=== PATIENT | female | born 1945 | race Caucasian/White ===

== ENCOUNTER 2018-02-16 17:09 | Emergency (ER) | payer MEDICARE, OTHER ==
[~2018-02-16 17:09] MED LIST changes: -CIPR-344 PO; -HYDR-385 PO; -METR-1 PO
--- NOTE | 2018-02-16 17:42 | ER Report ---
History and Physical Time Seen By MD: 17:32 Hx. of Stated Complaint: Pt. brought in by EMS with vomitting and dizziness. Pt. had a hamburger from [employer] and started vomiting soon after. Per pt. she has been having epigastric pain 7/10 after eating every meal. Recent unintentional 18pound weight loss in the past month. HPI/ROS CHIEF COMPLAINT: Abdominal pain HISTORY OF PRESENT ILLNESS: 73-year-old female patient presents to emergency room with complaint of abdominal pain and diarrhea. Patient states that she's victor d intermittent abdominal pain for the past several days. She states that today she seemed to have worsening abdominal pain. She states she was driving her daughter to work and to to the bank. She states that during that time she was having significant pain. She did purchase a burger and chicken nights. She states that she ate a burger and immediately after eating that felt like she is going to have to go the bathroom. [facility], however she is not able to control herself and had a continent bowel movement which was diarrhea. She states that she had recurrent are close as well as made a mass in the paulino and in the bathroom. Patient states she was unable to go home and did call EMS who brought her to the emergency room. She states she felt very lightheaded, and nauseous. It was her lightheadedness that concerned her the most. REVIEW OF SYSTEMS: Respiratory: No cough, no dyspnea. Cardiovascular: No chest pain, no palpitations. Gastrointestinal: As noted above Musculoskeletal: No back pain. Allergies: Coded Allergies: Penicillins (Verified Allergy, Severe, SWELLING, 08/09/14) prochlorperazine (Verified Allergy, Intermediate, PARANOIA, 08/09/14) Sulfa (Sulfonamide Antibiotics) (Verified Allergy, Mild, 08/09/14) promethazine (Verified Adverse Reaction, Intermediate, PARANOIA, 08/09/14) Home Meds Active Scripts Hydrocodone Bit/Acetaminophen (HYDROCODON-ACETAMINOPHEN 5-325) 1 Each Tablet, 1 EACH PO Q4-6H PRN for PAIN, #8 TAB Prov:PARVIN HIGGINS 02/16/18 Metronidazole (FLAGYL) 500 Mg Tablet, 500 MG PO BID, #12 TAB Prov:PARVIN HIGGINS 10/16/18 Ciprofloxacin Hcl (CIPRO) 500 Mg Tablet, 500 MG PO BID, #12 TAB Prov:PARVIN HIGGINS [employer] OPERATOR 02/16/18 Reported Medications Calcium Carbonate (CALCIUM) 600 Mg Tablet, 600 MG PO QDAY 08/09/14 Tramadol Hcl (TRAMADOL HCL) 50 Mg Tablet, 50 MG PO Q8H PRN for PAIN 08/09/14 Potassium Gluconate (POTASSIUM GLUCONATE) 500 Mg Tablet, 595 MG PO QDAY 08/09/14 Cyanocobalamin (Vitamin B-12) (VITAMIN B-12) 1,000 Mcg Tablet, 1000 MCG PO QDAY 08/09/14 Bonham-3 Fatty Acids/Fish Oil (OMEGA 3 1,000 MG SOFTGEL) 1 Each Capsule, 2 EACH PO BID, CAPSULE 08/09/14 Cholecalciferol (Vitamin D3) (VITAMIN D3) 2,000 Unit Capsule, 2000 UNIT PO QDAY, CAPSULE 08/09/14 Garlic (GARLIC) 1,000 Mg Capsule, 1000 MG PO QDAY, CAPSULE 08/09/14 Multivitamin (MULTIPLE VITAMINS) 1 Each Tablet, 1 EACH PO QDAY 08/09/14 Sitagliptin Phosphate (JANUVIA) 50 Mg Tablet, 50 MG PO QDAY 08/09/14 Ascorbic Acid (VITAMIN C) 1,000 Mg Tablet, 1000 MG PO QDAY 08/09/14 Diclofenac Sodium 1% Gel (VOLTAREN 1% GEL) 100 Gm Gel..gram., 1 G TOP QDAY 08/09/14 Lansoprazole (LANSOPRAZOLE) 30 Mg Capsule.dr, 30 MG PO QDAY 07/16/14 Past Medical/Surgical History Patient has a past medical history of asthma, pneumonia, reflux, cholecystitis, arthritis, fractures, back pain, diabetes, alcohol abuse. Patient has a surgical history of back surgery, hysterectomy, bladder sling, bowel resection, cholecystectomy. Patient has a family medical history of CAD, diabetes. Reviewed Nurses Notes: Yes Hx Smoking: No Smoking Status: Never Smoker Exposure to Second Hand Smoke?: No Hx Substance Use Disorder: No Hx Alcohol Use: Yes Constitutional Vital Sign - Last 24 Hours 02/16/18 02/16/18 02/16/18 02/16/18 17:15 17:18 17:30 17:45 Temp 98.2 Pulse 111 108 105 Resp 20 B/P (MAP) 123/64 130/75 (93) Pulse Ox 89 92 93 O2 Delivery Nasal Cannula 02/16/18 02/16/18 02/16/18 02/16/18 18:00 18:45 18:50 19:00 Pulse 102 105 B/P (MAP) 128/79 (95) 123/70 (87) Pulse Ox 95 93 02/16/18 02/16/18 02/16/18 02/16/18 19:20 19:30 19:50 20:00 Pulse 102 96 B/P (MAP) 127/79 (95) 130/67 (88) Pulse Ox 93 92 Physical Exam General Appearance: The patient is alert, has no immediate need for airway protection and no current signs of toxicity. Respiratory: Chest is non tender, lungs are clear to auscultation. Cardiac: regular rate and rhythm Gastrointestinal: Abdomen is soft and tender in the epigastric region, no masses, bowel sounds normal. Musculoskeletal: Neck: Neck is supple and non tender. Extremities have full range of motion and are non tender. Skin: No rashes or lesions. DIFFERENTIAL DIAGNOSIS: After history and physical exam differential diagnosis was considered for abdominal pain including but not limited to appendicitis, cholecystitis, gastritis and urinary tract infection. Medical Decision Making Data Points Result Diagram: 02/16/18 1725 02/16/18 1725 Laboratory Hematology Test 02/16/18 17:25 02/16/18 20:09 Red Blood Count 5.50 M/uL (4.17-5.56) Mean Corpuscular Volume 89.4 fL (80.0-96.0) Mean Corpuscular Hemoglobin 30.3 pg (26.0-33.0) Mean Corpuscular Hemoglobin Concent 33.9 g/dL (32.0-36.0) Red Cell Distribution Width 13.7 % (11.5-14.5) Mean Platelet Volume 9.6 fL (7.2-11.1) Neutrophils (%) (Auto) 64.6 % (39.4-72.5) Lymphocytes (%) (Auto) 24.5 % (17.6-49.6) Monocytes (%) (Auto) 9.1 % (4.1-12.4) Eosinophils (%) (Auto) 1.3 % (0.4-6.7) Basophils (%) (Auto) 0.5 % (0.3-1.4) Nucleated RBC Relative Count (auto) 0.1 /100WBC Neutrophils # (Auto) 5.3 K/uL (2.0-7.4) Lymphocytes # (Auto) 2.0 K/uL (1.3-3.6) Monocytes # (Auto) 0.7 K/uL (0.3-1.0) Eosinophils # (Auto) 0.1 K/uL (0.0-0.5) Basophils # (Auto) 0.0 K/uL (0.0-0.1) Nucleated RBC Absolute Count (auto) 0.01 K/uL Sodium Level 139 mmol/L (137-145) Potassium Level 3.7 mmol/L (3.5-5.0) Chloride Level 102 mmol/L (98-107) Carbon Dioxide Level 22 mmol/L (22-31) Blood Urea Nitrogen 19 mg/dl (7-18) Creatinine 1.20 mg/dl (0.52-1.04) Glomerular Filtration Rate Calc 43.8 Random Glucose 255 mg/dl (75-110) Calcium Level 9.4 mg/dl (8.4-10.2) Total Bilirubin 1.2 mg/dl (0.2-1.3) Aspartate Amino Transf (AST/SGOT) 44 U/L (0-35) Alanine Aminotransferase (ALT/SGPT) 46 U/L (0-56) Alkaline Phosphatase 78 U/L (0-126) C-Reactive Protein 1.0 mg/dl (<1.0) Total Protein 7.5 g/dl (6.3-8.2) Albumin 4.4 g/dl (3.5-5.0) Amylase Level 108 U/L (0-110) Lipase 61 U/L (23-300) Urine Color Yellow Urine Clarity Clear Urine pH 5.0 pH (4.8-9.5) Urine Specific [place] S3 Urine Protein Negative mg/dL (NEGATIVE) Urine Glucose (UA) 50 mg/dL (NEGATIVE) Urine Ketones Trace mg/dL (NEGATIVE) Urine Blood Negative (NEGATIVE) Urine Nitrite Negative (NEGATIVE) Urine Bilirubin Negative (NEGATIVE) Urine Urobilinogen Negative mg/dL (0.2-1.9) Urine Leukocyte Esterase Negative (NEGATIVE) Urine RBC 2 /HPF (0-2/HPF) Urine WBC 2 /HPF (0-5/HPF) Urine Squamous Epithelial Cells Many /LPF (</=FEW) Urine Bacteria Negative /HPF (NONE-FEW) Urine Hyaline Casts Few /LPF (NONE-FEW) Urine Mucus Few /HPF (NONE-FEW) Chemistry Test 02/16/18 17:25 02/16/18 20:09 White Blood Count 8.1 k/uL (4.5-11.0) Red Blood Count 5.50 M/uL (4.17-5.56) Hemoglobin 16.7 g/dL (12.0-16.0) Hematocrit 49.2 % (34.0-47.0) Mean Corpuscular Volume 89.4 fL (80.0-96.0) Mean Corpuscular Hemoglobin 30.3 pg (26.0-33.0) Mean Corpuscular Hemoglobin Concent 33.9 g/dL (32.0-36.0) Red Cell Distribution Width 13.7 % (11.5-14.5) Platelet Count 191 K/uL (150-450) Mean Platelet Volume 9.6 fL (7.2-11.1) Neutrophils (%) (Auto) 64.6 % (39.4-72.5) Lymphocytes (%) (Auto) 24.5 % (17.6-49.6) Monocytes (%) (Auto) 9.1 % (4.1-12.4) Eosinophils (%) (Auto) 1.3 % (0.4-6.7) Basophils (%) (Auto) 0.5 % (0.3-1.4) Nucleated RBC Relative Count (auto) 0.1 /100WBC Neutrophils # (Auto) 5.3 K/uL (2.0-7.4) Lymphocytes # (Auto) 2.0 K/uL (1.3-3.6) Monocytes # (Auto) 0.7 K/uL (0.3-1.0) Eosinophils # (Auto) 0.1 K/uL (0.0-0.5) Basophils # (Auto) 0.0 K/uL (0.0-0.1) Nucleated RBC Absolute Count (auto) 0.01 K/uL Glomerular Filtration Rate Calc 43.8 Calcium Level 9.4 mg/dl (8.4-10.2) Total Bilirubin 1.2 mg/dl (0.2-1.3) Aspartate Amino Transf (AST/SGOT) 44 U/L (0-35) Alanine Aminotransferase (ALT/SGPT) 46 U/L (0-56) Alkaline Phosphatase 78 U/L (0-126) C-Reactive Protein 1.0 mg/dl (<1.0) Total Protein 7.5 g/dl (6.3-8.2) Albumin 4.4 g/dl (3.5-5.0) Amylase Level 108 U/L (0-110) Lipase 61 U/L (23-300) Urine Color Yellow Urine Clarity Clear Urine pH 5.0 pH (4.8-9.5) Urine Specific [place] S3 Urine Protein Negative mg/dL (NEGATIVE) Urine Glucose (UA) 50 mg/dL (NEGATIVE) Urine Ketones Trace mg/dL (NEGATIVE) Urine Blood Negative (NEGATIVE) Urine Nitrite Negative (NEGATIVE) Urine Bilirubin Negative (NEGATIVE) Urine Urobilinogen Negative mg/dL (0.2-1.9) Urine Leukocyte Esterase Negative (NEGATIVE) Urine RBC 2 /HPF (0-2/HPF) Urine WBC 2 /HPF (0-5/HPF) Urine Squamous Epithelial Cells Many /LPF (</=FEW) Urine Bacteria Negative /HPF (NONE-FEW) Urine Hyaline Casts Few /LPF (NONE-FEW) Urine Mucus Few /HPF (NONE-FEW) Urinalysis Test 02/16/18 20:09 Urine Color Yellow Urine Clarity Clear Urine pH 5.0 pH (4.8-9.5) Urine Specific [place] S3 Urine Protein Negative mg/dL (NEGATIVE) Urine Glucose (UA) 50 mg/dL (NEGATIVE) Urine Ketones Trace mg/dL (NEGATIVE) Urine Blood Negative (NEGATIVE) Urine Nitrite Negative (NEGATIVE) Urine Bilirubin Negative (NEGATIVE) Urine Urobilinogen Negative mg/dL (0.2-1.9) Urine Leukocyte Esterase Negative (NEGATIVE) Urine RBC 2 /HPF (0-2/HPF) Urine WBC 2 /HPF (0-5/HPF) Urine Squamous Epithelial Cells Many /LPF (</=FEW) Urine Bacteria Negative /HPF (NONE-FEW) Urine Hyaline Casts Few /LPF (NONE-FEW) Urine Mucus Few /HPF (NONE-FEW) EKG/Imaging Imaging ABDOMEN/PELVIS WITH CONTRAST HISTORY: Abdominal pain and weight loss for one month. Diarrhea. TECHNIQUE: CT abdomen and pelvis with intravenous contrast. One of the following dose optimization techniques was utilized in the performance of this exam: Automated exposure control; adjustment of the mA and/or kV according to the patient's size; or use of an iterative reconstruction technique. Specific details can be referenced in the facility's radiology CT exam operational policy. CONTRAST: 75 mL Isovue-370. COMPARISON: CT dated 07/02/2011. FINDINGS: Visualized lung bases: Calcified granuloma within the right lower lobe. Otherwise negative. Hepatobiliary: Suggestion of hepatic steatosis. Gallbladder surgically absent. Otherwise negative. Spleen: Borderline prominent in size measuring 12.4 cm in diameter. There are numerous peripherally calcified splenic artery aneurysms, most of which are sub centimeter. A dominant bilobed aneurysm is noted within the proximal/mid splenic artery measuring approximately 2.7 x 1.9 cm (image 28 of series 2), previously 2.5 x 1.9 cm when measured in same fashion. Adrenals: Negative. Pancreas: Negative. Kidneys/: There is at least one 2 mm nonobstructive calculus within the left kidney. Uterus is surgically absent. Otherwise negative. GI: Areas of mild/moderate colonic wall thickening. No definitive pericolonic inflammation. No focal mass. No evidence for obstruction. Post surgical changes noted within small bowel loops in the lower midabdomen. Appendix is grossly unremarkable. Mild sigmoid diverticulosis without evidence for diverticulitis. Vessels/spaces/nodes: Mild atherosclerosis. No visualized lymphadenopathy. Mild/moderate sigmoid diverticulosis without evidence for diverticulitis. There are nonspecific small caliber collateral vessels within the retroperitoneum and left lower quadrant, increased since prior exam. The splenic vein is patent. No central venous narrowing identified. Bones/soft tissues: No acute osseous abnormality. Posterior surgical wiley from T10 through L2 without gross hardware complication. Probable remote fracture of the L1 vertebral body, unchanged. There is a new however subacute/chronic appea ring L4 superior endplate compression deformity. Moderate size intramuscular lipoma within the anterior compartment of the right upper thigh. IMPRESSION: 1. Areas of colonic wall thickening which could be somewhat related to underdistention however cannot exclude a component of infectious/inflammatory colitis. 2. Otherwise, no findings to explain the patient's clinical symptoms. 3. Incidental/chronic findings, as above. Report Dictated By: Kehinde Oneill MD at 02/16/2018 6:43 PM Report E-Signed By: Kehinde Oneill MD at 02/16/2018 6:51 PM ED Course/Re-evaluation ED Course Patient was admitted to an exam room, history and physical were obtained. Differential diagnoses were considered. On examination patient did have tenderness in the epigastric region. Her lungs and heart were clear and regular. A CBC, CMP were done. Patient did have an elevated blood sugar, however the rest of her labs were unremarkable. A CT scan of the abdomen and pelvis was done which showed mild thickening of the large intestine which would be consistent with an infectious colitis. I discussed the results of the lab work as well as imaging with the patient. Patient states she's having significant pain and requested something for pain. We did give her a dose of fentanyl. She states that she had significant improvement in her pain. She states she would like to go home. At the time that I was discussing with that with her she states dates that she would like to go ahead and go home and not wait for her urinalysis which were just obtained. I informed her that I would call her with results. We did get her started on Cipro, Flagyl. We'll also give her a limited supply of pain medication, hydrocodone with Tylenol, 5/325, #6. Patient received a take home pack of Lortab here in the emergency room. Patient requested that we discharge her home. I did call the patient when the urinalysis was available. I informed her that was negative for any signs of infection, although there were 50 mg of sugar in it. I believe is likely secondary to her hyperglycemia. We will have the patient follow-up with her primary care provider. She is to return to the emergency room if condition worsens. Patient verbalized understanding and agreement with plan. Decision to Disposition Date: Feb 16, 2018 Decision to Disposition Time: 19:40 Depart Departure Latest Vital Signs Vital Signs Date Time Temp Pulse Resp B/P (MAP) Pulse Ox O2 Delivery O2 Flow Rate FiO2 02/16/18 20:00 130/67 (88) 02/16/18 19:50 96 92 02/16/18 17:18 98.2 20 Nasal Cannula Impression: Primary Impression: Infectious colitis Condition: Improved Disposition: HOME OR SELF-CARE Referrals: MELIZA WILSON (PCP) New Scripts Hydrocodone Bit/Acetaminophen (HYDROCODON-ACETAMINOPHEN 5-325) 1 Each Tablet 1 EACH PO Q4-6H PRN for PAIN, #8 TAB Prov: PARVIN HIGGINS 02/16/18 Metronidazole (FLAGYL) 500 Mg Tablet 500 MG PO BID, #12 TAB Prov: PARVIN HIGGINS 02/16/18 Ciprofloxacin Hcl (CIPRO) 500 Mg Tablet 500 MG PO BID, #12 TAB Prov: PARVIN HIGGINS 02/16/18 Patient Instructions: Infectious Colitis (ED) Additional Instructions: Limit activity by pain. Increase fluid intake. Follow up with your primary care provider in the next 3-5 days. Get plenty of rest. You may continue with normal activity and diet. Return to the ER if condition worsens. PARVIN HIGGINS Feb 16, 2018 17:42
[2018-02-16] MEDS ORDERED: NS(*) 0.9% 500 ML BAG 500 ML IV ONE (17:47)
[2018-02-16 17:55] LABS: PLATELET COUNT, AUTOMATED 191 K/uL (150-450)
[2018-02-16] MEDS ORDERED: IOPAMIDOL 76% 75 ML INFUS BTL 75 ML ONE (18:00)
--- NOTE | 2018-02-16 18:54 | RADIOLOGY IMAGING REPORT ---
FACILITY: [facility] PATIENT NAME: Natalie Meza : 1945 MR: [id number] V: [id number] EXAM DATE: ORDERING PHYSICIAN: PARVIN HIGGINS TECHNOLOGIST: Location: [facility] [place] Patient: Natalie Meza : 1945 Visit/Account:[id number] Date of Sevice: 02/16/2018 ABDOMEN/PELVIS WITH CONTRAST HISTORY: Abdominal pain and weight loss for one month. Diarrhea. TECHNIQUE: CT abdomen and pelvis with intravenous contrast. One of the following dose optimization techniques was utilized in the performance of this exam: Autom ated exposure control; adjustment of the mA and/or kV according to the patient's size; or use of an i terative reconstruction technique. Specific details can be referenced in the facility's radiology C T exam operational policy. CONTRAST: 75 mL Isovue-370. COMPARISON: CT dated 07/02/2011. FINDINGS: Visualized lung bases: Calcified granuloma within the right lower lobe. Otherwise negative. Hepatobiliary: Suggestion of hepatic steatosis. Gallbladder surgically absent. Otherwise negative. Spleen: Borderline prominent in size measuring 12.4 cm in diameter. There are numerous peripherally calcified splenic artery aneurysms, most of which are subcentimeter. A dominant bilobed aneurysm is n oted within the proximal/mid splenic artery measuring approximately 2.7 x 1.9 cm (image 28 of series 2), previously 2.5 x 1.9 cm when measured in same fashion. Adrenals: Negative. Pancreas: Negative. Kidneys/: There is at least one 2 mm nonobstructive calculus within the left kidney. Uterus is surg ically absent. Otherwise negative. GI: Areas of mild/moderate colonic wall thickening. No definitive pericolonic inflammation. No focal mass. No evidence for obstruction. Post surgical changes noted within small bowel loops in the lower midabdomen. Appendix is grossly unremarkable. Mild sigmoid diverticulosis without evidence for diver ticulitis. Vessels/spaces/nodes: Mild atherosclerosis. No visualized lymphadenopathy. Mild/moderate sigmoid div erticulosis without evidence for diverticulitis. There are nonspecific small caliber collateral vess els within the retroperitoneum and left lower quadrant, increased since prior exam. The splenic vein is patent. No central venous narrowing identified. Bones/soft tissues: No acute osseous abnormality. Posterior surgical wiley from T10 through L2 without gross hardware complication. Probable remote fracture of the L1 vertebral body, unchanged. There is a new however subacute/chronic appearing L4 superior endplate compression deformity. Moderate size in tramuscular lipoma within the anterior compartment of the right upper thigh. IMPRESSION: 1. Areas of colonic wall thickening which could be somewhat related to underdistention however cannot exclude a component of infectious/inflammatory colitis. 2. Otherwise, no findings to explain the patient's clinical symptoms. 3. Incidental/chronic findings, as above. Report Dictated By: Kehinde Oneill MD at 02/16/2018 6:43 PM Report E-Signed By: Kehinde Oneill MD at 02/16/2018 6:51 PM WSN:[id number]
[2018-02-16] MEDS ORDERED: fentaNYL CITR 100 MCG/2 ML AMP IVP ONE (19:25)
[2018-02-16] MEDS ORDERED: HYDR-385 PO (19:40)
[2018-02-16] MEDS ORDERED: ACET/HYDROC 5/325MG TH ER ONLY 2 TAB/BOTTLE PO ONE (19:40)
[2018-02-16] MEDS ORDERED: CIPR-344 PO (19:40)
[2018-02-16] MEDS ORDERED: METR-1 PO (19:40)
[2018-02-16] MEDS ORDERED: CIPROFLOXACIN 500 MG TAB PO ONE (19:40)
[2018-02-16] MEDS ORDERED: METRONIDAZOLE 500 MG TABLET PO ONE (19:40)
[2018-02-16 20:00] VITALS: BP 130/67
== END 2018-02-16 20:32 | disposition home or self-care (01) ==
LOC: ER 17:43
DX: A09 Infectious gastroenteritis and colitis, unspecified (principal)
CPT/HCPCS: 81001; 82150; 83690; 85025; 86140; 96361; 96374; 99284; A9270; J3010; J7040; Q9967; 74177; 82040; 82247; 82310; 82374; 82435; 82565; 82947; 84075; 84132; 84155; 84295; 84450; 84460; 84520

== ENCOUNTER → 2018-02-16 | Outpatient (CLI) | payer MEDICARE, OTHER ==
[~2018-02-16] MED LIST: ACET650T40 PO; ASCO-191 PO; CALC600T63 PO; CEP500 PO; CHOL200025 PO; CIPR-344 PO; CYA1000 PO; CYCL10TA29 PO; DICL100G39 TOP; GARL10005 PO; GLIP-152 PO; HYDR-385 PO; HYDR-653 PO; HYDR473S4 PO; IBUP-56 PO; LANS30CA63 PO; LOR5 PO; METR-1 PO; MULT-976 PO; NO ROUTINE MEDS; OMEG-96 PO; OND4 PO; PAN40 PO; POTA2TAB29 PO; PSYP PO; SITA50TA6 PO; SUC1 PO; TRAM-420 PO
== END ==
LOC: AMB 16:38
PROVIDERS: ATTEND Nurse Practitioner
DX: R42 Dizziness and giddiness (principal); R15.9 Full incontinence of feces; E11.9 Type 2 diabetes mellitus without complications
CPT/HCPCS: A0425; A0427

== ENCOUNTER 2018-03-26 08:12 | Emergency (ER) | payer MEDICARE, OTHER ==
[~2018-03-26 08:12] MED LIST changes: +CIPR-344 PO; +HYDR-385 PO; +METR-1 PO
--- NOTE | 2018-03-26 08:14 | ER Report ---
History and Physical Time Seen By MD: 08:14 HPI/ROS CHIEF COMPLAINT: Left flank pain, nausea HISTORY OF PRESENT ILLNESS: Patient is a 73-year-old female who presents to the emergency department with complaint of nausea with multiple episodes of vomiting along with sudden onset of severe left flank pain that radiates to the groin. Patient has no prior history of kidney stones. She did report over this past week she was suffering from some bouts of watery diarrhea without blood or mucus. Patient denies any chest pain or shortness of breath. REVIEW OF SYSTEMS: Constitutional: No fever, no chills. Eyes: No discharge. ENT: No sore throat. Cardiovascular: No chest pain, no palpitations. Respiratory: No cough, no shortness of breath. Gastrointestinal: Left-sided flank pain, nausea with vomiting Genitourinary: No hematuria. Musculoskeletal: No back pain. Skin: No rashes. Neurological: No headache. Allergies: Coded Allergies: Penicillins (Verified Allergy, Severe, SWELLING, 03/26/18) prochlorperazine (Verified Allergy, Intermediate, PARANOIA, 03/26/18) Sulfa (Sulfonamide Antibiotics) (Verified Allergy, Mild, 03/26/18) promethazine (Verified Adverse Reaction, Intermediate, PARANOIA, 03/26/18) Home Meds Active Scripts Ondansetron Hcl (ZOFRAN) 4 Mg Tablet, 4 MG PO Q8H for Nausea, #15 TAB 0 Refills Prov:OTILIO MAGANA MD 03/26/18 Hydrocodone Bit/Acetaminophen (HYDROCODON-ACETAMINOPHEN 5-325) 1 Each Tablet, 1 EACH PO Q4-6H PRN for PAIN, #20 TAB 0 Refills TAKE ONE TABLET BY MOUTH EVERY 4-6 HOURS NEEDED FOR PAIN Prov:OTILIO MAGANA MD 03/26/18 Reported Medications Omeprazole (OMEPRAZOLE) 20 Mg Capsule.dr, 1 CAP PO QDAY, CAP 03/26/18 Sitagliptin Phosphate (JANUVIA) 100 Mg Tablet, 100 MG PO QDAY 03/26/18 Cholecalciferol (Vitamin D3) (VITAMIN D3) 2,000 Unit Capsule, 2000 UNIT PO QDAY, CAPSULE 08/09/14 Discontinued Reported Medications Calcium Carbonate (CALCIUM) 600 Mg Tablet, 600 MG PO QDAY 08/09/14 Tramadol Hcl (TRAMADOL HCL) 50 Mg Tablet, 50 MG PO Q8H PRN for PAIN 08/09/14 Potassium Gluconate (POTASSIUM GLUCONATE) 500 Mg Tablet, 595 MG PO QDAY 08/09/14 Cyanocobalamin (Vitamin B-12) (VITAMIN B-12) 1,000 Mcg Tablet, 1000 MCG PO QDAY 08/09/14 [place]-3 Fatty Acids/Fish Oil (OMEGA 3 1,000 MG SOFTGEL) 1 Each Capsule, 2 EACH PO BID, CAPSULE 08/09/14 Garlic (GARLIC) 1,000 Mg Capsule, 1000 MG PO QDAY, CAPSULE 08/09/14 Multivitamin (MULTIPLE VITAMINS) 1 Each Tablet, 1 EACH PO QDAY 08/09/14 Sitagliptin Phosphate (JANUVIA) 50 Mg Tablet, 50 MG PO QDAY 08/09/14 Ascorbic Acid (VITAMIN C) 1,000 Mg Tablet, 1000 MG PO QDAY 08/09/14 Diclofenac Sodium 1% Gel (VOLTAREN 1% GEL) 100 Gm Gel..gram., 1 G TOP QDAY 08/09/14 Lansoprazole (LANSOPRAZOLE) 30 Mg Capsule.dr, 30 MG PO QDAY 07/16/14 Discontinued Scripts Hydrocodone Bit/Acetaminophen (HYDROCODON-ACETAMINOPHEN 5-325) 1 Each Tablet, 1 EACH PO Q4-6H PRN for PAIN, #8 TAB Prov:[facility] 02/16/18 Metronidazole (FLAGYL) 500 Mg Tablet, 500 MG PO BID, #12 TAB Prov:[facility]IN [facility] 02/16/18 Ciprofloxacin Hcl 500 Mg Tab (CIPRO 500 MG TAB) 500 Mg Tablet, 500 MG PO BID, #12 TAB Prov:[facility] 02/16/18 Past Medical/Surgical History History of type II diabetes, history of gastroesophageal reflux disease Hx Smoking: No Smoking Status: Never Smoker Exposure to Second Hand Smoke?: No Hx Substance Use Disorder: No Hx Alcohol Use: Yes Constitutional Vital Sign - Last 24 Hours 03/26/18 03/26/18 03/26/18 03/26/18 08:30 08:31 09:12 09:42 Temp 98.6 Pulse 86 83 72 Resp 14 B/P (MAP) 133/71 (91) 133/71 Pulse Ox 92 96 91 O2 Delivery Room Air 03/26/18 03/26/18 03/26/18 03/26/18 09:47 09:55 09:58 10:00 Pulse 77 B/P (MAP) 107/56 (73) 122/63 (82) Pulse Ox 89 O2 Flow Rate 2.0 03/26/18 03/26/18 10:17 10:30 Pulse 82 B/P (MAP) 135/57 (83) Pulse Ox 94 Physical Exam General Appearance: The patient is alert, has no immediate need for airway protection and no signs of toxicity. Eyes: Pupils equal and round no pallor or injection. ENT, Mouth: Mucous membranes are moist. Respiratory: There are no retractions, lungs are clear to auscultation. Cardiovascular: Regular rate and rhythm. Gastrointestinal: Abdomen is soft and non tender, no masses, bowel sounds normal. Neurological: Awake and alert Skin: Warm and dry, no rashes. Musculoskeletal: Neck is supple non tender. Extremities are nontender, nonswollen and have full range of motion. Medical Decision Making Data Points Result Diagram: 03/26/18 0906 03/26/18 0906 Laboratory Hematology Test 03/26/18 08:20 03/26/18 09:06 Urine Color Yellow Urine Clarity Slightly-cloudy Urine pH 5.0 pH (4.8-9.5) Urine Specific [place] 1.021 Urine Protein 30 mg/dL (NEGATIVE) Urine Glucose (UA) 500 mg/dL (NEGATIVE) Urine Ketones Negative mg/dL (NEGATIVE) Urine Blood Large (NEGATIVE) Urine Nitrite Negative (NEGATIVE) Urine Bilirubin Negative (NEGATIVE) Urine Urobilinogen Negative mg/dL (0.2-1.9) Urine Leukocyte Esterase Negative (NEGATIVE) Urine RBC 13 /HPF (0-2/HPF) Urine WBC 2 /HPF (0-5/HPF) Urine Squamous Epithelial Cells Many /LPF (</=FEW) Urine Bacteria Few /HPF (NONE-FEW) Urine Mucus Few /HPF (NONE-FEW) Red Blood Count 5.42 M/uL (4.17-5.56) Mean Corpuscular Volume 89.9 fL (80.0-96.0) Mean Corpuscular Hemoglobin 30.3 pg (26.0-33.0) Mean Corpuscular Hemoglobin Concent 33.7 g/dL (32.0-36.0) Red Cell Distribution Width 13.7 % (11.5-14.5) Mean Platelet Volume 9.1 fL (7.2-11.1) Neutrophils (%) (Auto) 58.0 % (39.4-72.5) Lymphocytes (%) (Auto) 30.4 % (17.6-49.6) Monocytes (%) (Auto) 9.1 % (4.1-12.4) Eosinophils (%) (Auto) 1.0 % (0.4-6.7) Basophils (%) (Auto) 1.5 % (0.3-1.4) Nucleated RBC Relative Count (auto) 0.0 /100WBC Neutrophils # (Auto) 4.1 K/uL (2.0-7.4) Lymphocytes # (Auto) 2.1 K/uL (1.3-3.6) Monocytes # (Auto) 0.6 K/uL (0.3-1.0) Eosinophils # (Auto) 0.1 K/uL (0.0-0.5) Basophils # (Auto) 0.1 K/uL (0.0-0.1) Nucleated RBC Absolute Count (auto) 0.00 K/uL Sodium Level 139 mmol/L (137-145) Potassium Level 4.5 mmol/L (3.5-5.0) Chloride Level 106 mmol/L (98-107) Carbon Dioxide Level 21 mmol/L (22-31) Blood Urea Nitrogen 13 mg/dl (7-18) Creatinine 0.70 mg/dl (0.52-1.04) Glomerular Filtration Rate Calc > 60.0 Random Glucose 301 mg/dl (75-110) Calcium Level 9.7 mg/dl (8.4-10.2) Total Bilirubin 0.8 mg/dl (0.2-1.3) Aspartate Amino Transf (AST/SGOT) 37 U/L (0-35) Alanine Aminotransferase (ALT/SGPT) 41 U/L (0-56) Alkaline Phosphatase 78 U/L (0-126) Total Protein 7.2 g/dl (6.3-8.2) Albumin 3.9 g/dl (3.5-5.0) Lipase 118 U/L (23-300) Chemistry Test 03/26/18 08:20 03/26/18 09:06 Urine Color Yellow Urine Clarity Slightly-cloudy Urine pH 5.0 pH (4.8-9.5) Urine Specific [place] 1.021 Urine Protein 30 mg/dL (NEGATIVE) Urine Glucose (UA) 500 mg/dL (NEGATIVE) Urine Ketones Negative mg/dL (NEGATIVE) Urine Blood Large (NEGATIVE) Urine Nitrite Negative (NEGATIVE) Urine Bilirubin Negative (NEGATIVE) Urine Urobilinogen Negative mg/dL (0.2-1.9) Urine Leukocyte Esterase Negative (NEGATIVE) Urine RBC 13 /HPF (0-2/HPF) Urine WBC 2 /HPF (0-5/HPF) Urine Squamous Epithelial Cells Many /LPF (</=FEW) Urine Bacteria Few /HPF (NONE-FEW) Urine Mucus Few /HPF (NONE-FEW) White Blood Count 7.0 k/uL (4.5-11.0) Red Blood Count 5.42 M/uL (4.17-5.56) Hemoglobin 16.4 g/dL (12.0-16.0) Hematocrit 48.8 % (34.0-47.0) Mean Corpuscular Volume 89.9 fL (80.0-96.0) Mean Corpuscular Hemoglobin 30.3 pg (26.0-33.0) Mean Corpuscular Hemoglobin Concent 33.7 g/dL (32.0-36.0) Red Cell Distribution Width 13.7 % (11.5-14.5) Platelet Count 145 K/uL (150-450) Mean Platelet Volume 9.1 fL (7.2-11.1) Neutrophils (%) (Auto) 58.0 % (39.4-72.5) Lymphocytes (%) (Auto) 30.4 % (17.6-49.6) Monocytes (%) (Auto) 9.1 % (4.1-12.4) Eosinophils (%) (Auto) 1.0 % (0.4-6.7) Basophils (%) (Auto) 1.5 % (0.3-1.4) Nucleated RBC Relative Count (auto) 0.0 /100WBC Neutrophils # (Auto) 4.1 K/uL (2.0-7.4) Lymphocytes # (Auto) 2.1 K/uL (1.3-3.6) Monocytes # (Auto) 0.6 K/uL (0.3-1.0) Eosinophils # (Auto) 0.1 K/uL (0.0-0.5) Basophils # (Auto) 0.1 K/uL (0.0-0.1) Nucleated RBC Absolute Count (auto) 0.00 K/uL Glomerular Filtration Rate Calc > 60.0 Calcium Level 9.7 mg/dl (8.4-10.2) Total Bilirubin 0.8 mg/dl (0.2-1.3) Aspartate Amino Transf (AST/SGOT) 37 U/L (0-35) Alanine Aminotransferase (ALT/SGPT) 41 U/L (0-56) Alkaline Phosphatase 78 U/L (0-126) Total Protein 7.2 g/dl (6.3-8.2) Albumin 3.9 g/dl (3.5-5.0) Lipase 118 U/L (23-300) Urinalysis Test 03/26/18 08:20 Urine Color Yellow Urine Clarity Slightly-cloudy Urine pH 5.0 pH (4.8-9.5) Urine Specific [place] 1.021 Urine Protein 30 mg/dL (NEGATIVE) Urine Glucose (UA) 500 mg/dL (NEGATIVE) Urine Ketones Negative mg/dL (NEGATIVE) Urine Blood Large (NEGATIVE) Urine Nitrite Negative (NEGATIVE) Urine Bilirubin Negative (NEGATIVE) Urine Urobilinogen Negative mg/dL (0.2-1.9) Urine Leukocyte Esterase Negative (NEGATIVE) Urine RBC 13 /HPF (0-2/HPF) Urine WBC 2 /HPF (0-5/HPF) Urine Squamous Epithelial Cells Many /LPF (</=FEW) Urine Bacteria Few /HPF (NONE-FEW) Urine Mucus Few /HPF (NONE-FEW) EKG/Imaging Imaging FACILITY: [facility] [place] PATIENT NAME: Natalie Meza : 1945 MR: [id number] V: [id number] EXAM DATE: [id number] ORDERING PHYSICIAN: OTILIO MAGANA TECHNOLOGIST: [place] [facility] [place] Meza : 1945 Visit/Account:[id number] Date of Sevice: 03/26/2018 ABDOMEN/PELVIS W/O CONTRAST HISTORY: Left flank pain. TECHNIQUE: CT abdomen and pelvis without intravenous contrast. One of the following dose optimization techniques was utilized in the performance of this exam: Automated exposure control; adjustment of the mA and/or kV according to the patient's size; or use of an iterative reconstruction technique. Specific details can be referenced in the facility's radiology CT exam operational policy. CONTRAST: None. Please note, lack of IV contrast limits evaluation of solid organs. COMPARISON: CT dated February 16, 2018. FINDINGS: Visualized lung bases: Calcite granuloma within the right lower lobe. Otherwise negative. Hepatobiliary: Questionable mild lobulated contour of the liver. Gallbladder surgically absent. Otherwise negative. Spleen: Negative. Adrenals: Negative. Pancreas: Negative. Kidneys/: 3-4 mm calculus at or just proximal to the left UVJ with mild left hydroureteronephrosis. No additional urolithiasis identified. Few scattered nonspecific cortical calcifications within the kidneys. Uterus is surgically absent. GI: Mild/moderate sigmoid diverticulosis without evidence for diverticulitis. There is mild circumferential wall thickening of the sigmoid colon which is likely related to chronic inflammation. Appendix is unremarkable. Postsurgical changes noted within a small bowel loop in the lower abdomen. Vessels/spaces/nodes: Mild atherosclerosis. Peripherally calcified splenic artery aneurysms, unchanged. Otherwise negative. Bones/soft tissues: Incidental note of an intramuscular lipoma within the anterior right thigh compartment. Grossly unremarkable appearance of lumbar fusion hardware. Chronic L4 superior plate compression deformity, unchanged. No acute abnormality. IMPRESSION: 1. 3-4 mm calculus at or just proximal to the left UVJ with mild left hydroureteronephrosis. 2. Additional incidental/chronic findings, as above. Report Dictated By: Kehinde Oneill MD at 03/26/2018 9:52 AM Report E-Signed By: Kehinde Oneill MD at 03/26/2018 9:59 AM WSN:[id number] ED Course/Re-evaluation Clinical Indication for ER IV: IV Access ED Course 03/26/2018 8:56:16 amAfter history and physical exam was performed differential diagnosis was formulated which includes but is not limited to renal colic, urinary tract infection, gastroenteritis. Bedside ultrasound showed moderate left-sided hydronephrosis. Plan at this time will be pain medication, nausea medicine we'll also perform CT scan of the abdomen and pelvis. Re-evaluation 03/26/2018 10:20:27 am patient feeling improved at this time. Patient with 3-4 mm UPJ stone on the left. Plan will be oral pain medicine with nausea medicine and discharge home. Decision to Disposition Date: Mar 26, 2018 Decision to Disposition Time: 10:27 Depart Departure Latest Vital Signs Vital Signs Date Time Temp Pulse Resp B/P (MAP) Pulse Ox O2 Delivery O2 Flow Rate FiO2 03/26/18 10:30 135/57 (83) 03/26/18 10:17 82 94 03/26/18 09:55 2.0 03/26/18 08:31 98.6 14 Room Air Impression: Primary Impression: Kidney stone on left side Condition: Improved Disposition: HOME OR SELF-CARE Referrals: MELIZA WILSON (PCP) New Scripts Ondansetron Hcl (ZOFRAN) 4 Mg Tablet 4 MG PO Q8H for Nausea, #15 TAB 0 Refills Prov: OTILIO MAGANA MD 03/26/18 Hydrocodone Bit/Acetaminophen (HYDROCODON-ACETAMINOPHEN 5-325) 1 Each Tablet 1 EACH PO Q4-6H PRN for PAIN, #20 TAB 0 Refills TAKE ONE TABLET BY MOUTH EVERY 4-6 HOURS NEEDED FOR PAIN Prov: OTILIO MAGANA MD 03/26/18 Patient Instructions: Kidney Stones (ED) Additional Instructions: If your symptoms do not improve by Thursday, March 29 you should call to schedule an appointment with the urologist. If at any point your pain is not controlled, you have intractable vomiting, or you develop fever you should r eturn to the emergency department immediately for reevaluation. OTILIO MAGANA MD Mar 26, 2018 08:14
[2018-03-26] MEDS ORDERED: NS(*) 0.9% 500 ML BAG 500 ML IV ONE (08:48)
[2018-03-26] MEDS ORDERED: ONDANSETRON 4 MG/2 ML VIAL IVP ONE (08:50)
[2018-03-26] MEDS ORDERED: KETOROLAC 30 MG/ML VIAL IVP ONE (08:50)
[2018-03-26] MEDS ORDERED: OMEP-125 PO (09:12)
[2018-03-26] MEDS ORDERED: SITA100T PO (09:12)
[2018-03-26 09:16] LABS: PLATELET COUNT, AUTOMATED 145 K/uL (150-450)
--- NOTE | 2018-03-26 10:03 | RADIOLOGY IMAGING REPORT ---
FACILITY: [facility] [place] PATIENT NAME: Natalie Meza : 1945 MR: [id number] V: [id number] EXAM DATE: ORDERING PHYSICIAN: OTILIO MAGANA TECHNOLOGIST: Location: [facility] Patient: Natalie Meza : 1945 Visit/Account:[id number] Date of Sevice: 03/26/2018 ABDOMEN/PELVIS W/O CONTRAST HISTORY: Left flank pain. TECHNIQUE: CT abdomen and pelvis without intravenous contrast. One of the following dose optimization techniques was utilized in the performance of this exam: Autom ated exposure control; adjustment of the mA and/or kV according to the patient's size; or use of an i terative reconstruction technique. Specific details can be referenced in the facility's radiology C T exam operational policy. CONTRAST: None. Please note, lack of IV contrast limits evaluation of solid organs. COMPARISON: CT dated February 16, 2018. FINDINGS: Visualized lung bases: Calcite granuloma within the right lower lobe. Otherwise negative. Hepatobiliary: Questionable mild lobulated contour of the liver. Gallbladder surgically absent. Ot herwise negative. Spleen: Negative. Adrenals: Negative. Pancreas: Negative. Kidneys/: 3-4 mm calculus at or just proximal to the left UVJ with mild left hydroureteronephrosis . No additional urolithiasis identified. Few scattered nonspecific cortical calcifications within t he kidneys. Uterus is surgically absent. GI: Mild/moderate sigmoid diverticulosis without evidence for diverticulitis. There is mild circumf erential wall thickening of the sigmoid colon which is likely related to chronic inflammation. Appen dennis is unremarkable. Postsurgical changes noted within a small bowel loop in the lower abdomen. Vessels/spaces/nodes: Mild atherosclerosis. Peripherally calcified splenic artery aneurysms, unchan ged. Otherwise negative. Bones/soft tissues: Incidental note of an intramuscular lipoma within the anterior right thigh yuridia rtment. Grossly unremarkable appearance of lumbar fusion hardware. Chronic L4 superior plate compre ssion deformity, unchanged. No acute abnormality. IMPRESSION: 1. 3-4 mm calculus at or just proximal to the left UVJ with mild left hydroureteronephrosis. 2. Additional incidental/chronic findings, as above. Report Dictated By: Kehinde Oneill MD at 03/26/2018 9:52 AM Report E-Signed By: Kehinde Oneill MD at 03/26/2018 9:59 AM WSN:[id number]
[2018-03-26] MEDS ORDERED: ONDA4TAB97 PO (10:24)
[2018-03-26] MEDS ORDERED: LOR5/325 PO (10:24)
[2018-03-26 10:30] VITALS: BP 135/57
== END 2018-03-26 10:51 | disposition home or self-care (01) ==
LOC: ER 08:22
DX: N13.2 Hydronephrosis with renal and ureteral calculous obstruction (principal)
CPT/HCPCS: 36415; 74176; 81001; 83690; 85025; 87088; 96361; 96374; 96375; 99284; J1885; J2405; J7040; 82040; 82247; 82310; 82374; 82435; 82565; 82947; 84075; 84132; 84155; 84295; 84450; 84460; 84520

== ENCOUNTER 2018-03-29 00:03 | Emergency (ER) | payer MEDICARE, OTHER ==
[~2018-03-29 00:03] MED LIST changes: +LOR5/325 PO; +OMEP-125 PO; +ONDA4TAB97 PO; +SITA100T PO
--- NOTE | 2018-03-29 00:05 | ER Report ---
History and Physical Time Seen By MD: 00:06 HPI/ROS CHIEF COMPLAINT: Left flank pain HISTORY OF PRESENT ILLNESS: 73-year-old female returns complaining of continued left flank pain. She was diagnosed with a kidney stone 2 days ago on CAT scan. She now notes vomiting for several hours. Patient notes no fever. She's been taking pain medication as prescribed. She took the Zofran at home but vomited despite taking it. She is unable to keep the pain medication down. REVIEW OF SYSTEMS: Respiratory: No cough, no dyspnea. Cardiovascular: No chest pain, no palpitations. Gastrointestinal: As above Musculoskeletal: As above Allergies: Coded Allergies: Penicillins (Verified Allergy, Severe, SWELLING, 03/26/18) prochlorperazine (Verified Allergy, Intermediate, PARANOIA, 03/26/18) Sulfa (Sulfonamide Antibiotics) (Verified Allergy, Mild, 03/26/18) promethazine (Verified Adverse Reaction, Intermediate, PARANOIA, 03/26/18) Home Meds Active Scripts Tamsulosin Hcl (FLOMAX) 0.4 Mg Cap.er.24h, 0.4 MG PO QHS for ureteral relaxation, #10 CAP Prov:KARIE MILTON DO 03/29/18 Ondansetron Hcl (ZOFRAN) 4 Mg Tablet, 4 MG PO Q8H for Nausea, #15 TAB 0 Refills Prov:OTILIO MAGANA MD 03/26/18 Reported Medications Hydrocodone Bit/Acetaminophen (HYDROCODON-ACETAMINOPHEN 5-325) 1 Each Tablet, 1- 2 EACH PO Q4-6H PRN for PAIN, TAB 03/29/18 Omeprazole (OMEPRAZOLE) 20 Mg Capsule.dr, 1 CAP PO QDAY, CAP 03/26/18 Sitagliptin Phosphate (JANUVIA) 100 Mg Tablet, 100 MG PO QDAY 03/26/18 Discontinued Reported Medications Hydrocodone Bit/Acetaminophen (HYDROCODON-ACETAMINOPHEN 5-325) 1 Each Tablet, 1- 2 EACH PO Q4-6H, TAB 03/29/18 Cholecalciferol (Vitamin D3) (VITAMIN D3) 2,000 Unit Capsule, 2000 UNIT PO QDAY, CAPSULE 08/09/14 Calcium Carbonate (CALCIUM) 600 Mg Tablet, 600 MG PO QDAY 08/09/14 Tramadol Hcl (TRAMADOL HCL) 50 Mg Tablet, 50 MG PO Q8H PRN for PAIN 08/09/14 Potassium Gluconate (POTASSIUM GLUCONATE) 500 Mg Tablet, 595 MG PO QDAY 08/09/14 Cyanocobalamin (Vitamin B-12) (VITAMIN B-12) 1,000 Mcg Tablet, 1000 MCG PO QDAY 08/09/14 Archbold-3 Fatty Acids/Fish Oil (OMEGA 3 1,000 MG SOFTGEL) 1 Each Capsule, 2 EACH PO BID, CAPSULE 08/09/14 Garlic (GARLIC) 1,000 Mg Capsule, 1000 MG PO QDAY, CAPSULE 08/09/14 Multivitamin (MULTIPLE VITAMINS) 1 Each Tablet, 1 EACH PO QDAY 08/09/14 Sitagliptin Phosphate (JANUVIA) 50 Mg Tablet, 50 MG PO QDAY 08/09/14 Ascorbic Acid (VITAMIN C) 1,000 Mg Tablet, 1000 MG PO QDAY 08/09/14 Diclofenac Sodium 1% Gel (VOLTAREN 1% GEL) 100 Gm Gel..gram., 1 G TOP QDAY 08/09/14 Lansoprazole (LANSOPRAZOLE) 30 Mg Capsule.dr, 30 MG PO QDAY 07/16/14 Discontinued Scripts Hydrocodone Bit/Acetaminophen (HYDROCODON-ACETAMINOPHEN 5-325) 1 Each Tablet, 1 EACH PO Q4-6H PRN for PAIN, #20 TAB 0 Refills TAKE ONE TABLET BY MOUTH EVERY 4-6 HOURS NEEDED FOR PAIN Prov:OTILIO MAGANA MD 03/26/18 Hydrocodone Bit/Acetaminophen (HYDROCODON-ACETAMINOPHEN 5-325) 1 Each Tablet, 1 EACH PO Q4-6H PRN for PAIN, #8 TAB Prov:PARVIN HIGGINS [facility] 02/16/18 Metronidazole (FLAGYL) 500 Mg Tablet, 500 MG PO BID, #12 TAB Prov:PARVIN HIGGINS [facility] 02/16/18 Ciprofloxacin Hcl 500 Mg Tab (CIPRO 500 MG TAB) 500 Mg Tablet, 500 MG PO BID, #12 TAB Prov:PARVIN HIGGINS [facility] 02/16/18 Past Medical/Surgical History Patient has a past medical history of asthma, pneumonia, reflux, cholecystitis, arthritis, fractures, back pain, diabetes, alcohol abuse. Patient has a surgical history of back surgery, hysterectomy, bladder sling, bowel resection, cholecystectomy. Patient has a family medical history of CAD, diabetes. Reviewed Nurses Notes: Yes Old Medical Records Reviewed: Yes Hx Smoking: No Smoking Status: Never Smoker Exposure to Second Hand Smoke?: No Hx Substance Use Disorder: No Hx Alcohol Use: Yes Constitutional Vital Sign - Last 24 Hours 03/29/18 03/29/18 03/29/18 03/29/18 00:03 00:06 00:06 00:21 Temp 97.3 Pulse 101 Resp 20 B/P (MAP) 123/59 123/59 (80) Pulse Ox 80 80 O2 Delivery Room Air Room Air O2 Flow Rate 2 2.0 03/29/18 03/29/18 03/29/18 03/29/18 00:24 00:33 00:34 00:48 Pulse 89 80 B/P (MAP) 116/69 (85) Pulse Ox 92 93 O2 Delivery Nasal Cannula Nasal Cannula O2 Flow Rate 2.0 2 2 03/29/18 03/29/18 03/29/18 03/29/18 00:53 01:00 01:08 01:30 Pulse 84 85 B/P (MAP) 106/54 (71) 105/58 (74) Pulse Ox 88 87 O2 Delivery Nasal Cannula Nasal Cannula O2 Flow Rate 2 03/29/18 03/29/18 03/29/18 03/29/18 01:38 01:43 01:58 02:00 Pulse 73 75 69 B/P (MAP) 100/49 (66) Pulse Ox 93 78 93 O2 Delivery Nasal Cannula Room Air O2 Flow Rate 2 03/29/18 03/29/18 03/29/18 03/29/18 02:00 02:03 02:03 02:08 Pulse 70 Resp 14 Pulse Ox 94 O2 Delivery Nasal Cannula O2 Flow Rate 2.0 2.0 1.0 03/29/18 03/29/18 03/29/18 03/29/18 02:09 02:30 03:00 03:30 Pulse 74 B/P (MAP) 103/46 (65) 109/52 (71) 100/66 (77) Pulse Ox 97 90 90 89 O2 Delivery Nasal Cannula Nasal Cannula Nasal Cannula Nasal Cannula O2 Flow Rate 1 1 1 1 03/29/18 03/29/18 03/29/18 03/29/18 04:00 04:06 04:11 04:13 Pulse 72 72 B/P (MAP) 101/56 (71) Pulse Ox 91 93 93 O2 Delivery Nasal Cannula Nasal Cannula O2 Flow Rate 2.0 1 1 1103/29/18 03/29/18 03/29/18 04:18 04:30 04:33 04:38 Pulse 73 70 73 B/P (MAP) 110/58 (75) Pulse Ox 91 86 93 95 O2 Delivery Nasal Cannula Nasal Cannula Nasal Cannula O2 Flow Rate 2 2 Physical Exam General Appearance: The patient is alert, has no immediate need for airway protection and no current signs of toxicity. Vital signs stable, afebrile, pulse ox normal, slightly pale appearing, skin warm and dry Eyes: Pupils equal and round no injection. Respiratory: Chest is non tender, lungs are clear to auscultation. Cardiac: regular rate and rhythm Gastrointestinal: Abdomen is soft and non tender, no masses, bowel sounds normal. Musculoskeletal: Neck: Neck is supple and non tender. Extremities have full range of motion and are non tender. Skin: No rashes or lesions. DIFFERENTIAL DIAGNOSIS: After history and physical exam differential diagnosis was considered for flank pain including but not limited to musculoskeletal causes, kidney stone, pyelonephritis, shingles, and intra-abdominal causes such as diverticulitis and appendicitis. Additionally,shortness of breath including but not limited to pulmonary infectious process, COPD, asthma, pulmonary embolus and congestive heart failure. Medical Decision Making Data Points Result Diagram: 03/29/18 0030 03/29/18 0349 Laboratory Hematology Test 03/29/18 00:30 03/29/18 03:49 Red Blood Count 4.91 M/uL (4.17-5.56) Mean Corpuscular Volume 88.9 fL (80.0-96.0) Mean Corpuscular Hemoglobin 30.5 pg (26.0-33.0) Mean Corpuscular Hemoglobin Concent 34.3 g/dL (32.0-36.0) Red Cell Distribution Width 13.6 % (11.5-14.5) Mean Platelet Volume 9.5 fL (7.2-11.1) Neutrophils (%) (Auto) 68.8 % (39.4-72.5) Lymphocytes (%) (Auto) 18.1 % (17.6-49.6) Monocytes (%) (Auto) 10.6 % (4.1-12.4) Eosinophils (%) (Auto) 2.0 % (0.4-6.7) Basophils (%) (Auto) 0.5 % (0.3-1.4) Nucleated RBC Relative Count (auto) 0.6 /100WBC Neutrophils # (Auto) 7.7 K/uL (2.0-7.4) Lymphocytes # (Auto) 2.0 K/uL (1.3-3.6) Monocytes # (Auto) 1.2 K/uL (0.3-1.0) Eosinophils # (Auto) 0.2 K/uL (0.0-0.5) Basophils # (Auto) 0.1 K/uL (0.0-0.1) Nucleated RBC Absolute Count (auto) 0.07 K/uL D-Dimer Quantitative (PE/DVT) 1.15 ug/ml (0-0.50) Lactate 2.5 mmol/L (0.7-2.1) Total Bilirubin 1.0 mg/dl (0.2-1.3) Aspartate Amino Transf (AST/SGOT) 21 U/L (0-35) Alanine Aminotransferase (ALT/SGPT) 32 U/L (0-56) Alkaline Phosphatase 67 U/L (0-126) Total Protein 6.4 g/dl (6.3-8.2) Albumin 3.6 g/dl (3.5-5.0) Amylase Level 57 U/L (0-110) Lipase 280 U/L (23-300) Sodium Level 135 mmol/L (137-145) Potassium Level 4.0 mmol/L (3.5-5.0) Chloride Level 104 mmol/L (98-107) Carbon Dioxide Level 23 mmol/L (22-31) Blood Urea Nitrogen 18 mg/dl (7-18) Creatinine 1.30 mg/dl (0.52-1.04) Glomerular Filtration Rate Calc 39.9 Random Glucose 167 mg/dl (75-110) Calcium Level 7.6 mg/dl (8.4-10.2) Chemistry Test 03/29/18 00:30 03/29/18 03:49 White Blood Count 11.2 k/uL (4.5-11.0) Red Blood Count 4.91 M/uL (4.17-5.56) Hemoglobin 15.0 g/dL (12.0-16.0) Hematocrit 43.7 % (34.0-47.0) Mean Corpuscular Volume 88.9 fL (80.0-96.0) Mean Corpuscular Hemoglobin 30.5 pg (26.0-33.0) Mean Corpuscular Hemoglobin Concent 34.3 g/dL (32.0-36.0) Red Cell Distribution Width 13.6 % (11.5-14.5) Platelet Count 179 K/uL (150-450) Mean Platelet Volume 9.5 fL (7.2-11.1) Neutrophils (%) (Auto) 68.8 % (39.4-72.5) Lymphocytes (%) (Auto) 18.1 % (17.6-49.6) Monocytes (%) (Auto) 10.6 % (4.1-12.4) Eosinophils (%) (Auto) 2.0 % (0.4-6.7) Basophils (%) (Auto) 0.5 % (0.3-1.4) Nucleated RBC Relative Count (auto) 0.6 /100WBC Neutrophils # (Auto) 7.7 K/uL (2.0-7.4) Lymphocytes # (Auto) 2.0 K/uL (1.3-3.6) Monocytes # (Auto) 1.2 K/uL (0.3-1.0) Eosinophils # (Auto) 0.2 K/uL (0.0-0.5) Basophils # (Auto) 0.1 K/uL (0.0-0.1) Nucleated RBC Absolute Count (auto) 0.07 K/uL D-Dimer Quantitative (PE/DVT) 1.15 ug/ml (0-0.50) Lactate 2.5 mmol/L (0.7-2.1) Total Bilirubin 1.0 mg/dl (0.2-1.3) Aspartate Amino Transf (AST/SGOT) 21 U/L (0-35) Alanine Aminotransferase (ALT/SGPT) 32 U/L (0-56) Alkaline Phosphatase 67 U/L (0-126) Total Protein 6.4 g/dl (6.3-8.2) Albumin 3.6 g/dl (3.5-5.0) Amylase Level 57 U/L (0-110) Lipase 280 U/L (23-300) Glomerular Filtration Rate Calc 39.9 Calcium Level 7.6 mg/dl (8.4-10.2) Coagulation Test 03/29/18 00:30 D-Dimer Quantitative (PE/DVT) 1.15 ug/ml EKG/Imaging Imaging CT scan from 03/26/18 reviewed, see below ABDOMEN/PELVIS W/O CONTRAST HISTORY: Left flank pain. TECHNIQUE: CT abdomen and pelvis without intravenous contrast. One of the following dose optimization techniques was utilized in the performance of this exam: Automated exposure control; adjustment of the mA and/or kV according to the patient's size; or use of an iterative reconstruction technique. Specific details can be referenced in the facility's radiology CT exam operational policy. CONTRAST: None. Please note, lack of IV contrast limits evaluation of solid organs. COMPARISON: CT dated February 16, 2018. FINDINGS: Visualized lung bases: Calcite granuloma within the right lower lobe. Otherwise negative. Hepatobiliary: Questionable mild lobulated contour of the liver. Gallbladder surgically absent. Otherwise negative. Spleen: Negative. Adrenals: Negative. Pancreas: Negative. Kidneys/: 3-4 mm calculus at or just proximal to the left UVJ with mild left hydroureteronephrosis. No additional urolithiasis identified. Few scattered nonspecific cortical calcifications within the kidneys. Uterus is surgically absent. GI: Mild/moderate sigmoid diverticulosis without evidence for diverticulitis. There is mild circumferential wall thickening of the sigmoid colon which is li rubens related to chronic inflammation. Appendix is unremarkable. Postsurgical changes noted within a small bowel loop in the lower abdomen. Vessels/spaces/nodes: Mild atherosclerosis. Peripherally calcified splenic artery aneurysms, unchanged. Otherwise negative. Bones/soft tissues: Incidental note of an intramuscular lipoma within the anterior right thigh compartment. Grossly unremarkable appearance of lumbar fusion hardware. Chronic L4 superior plate compression deformity, unchanged. No acute abnormality. IMPRESSION: 1. 3-4 mm calculus at or just proximal to the left UVJ with mild left hydroureteronephrosis. 2. Additional incidental/chronic findings, as above. X-ray: Two-view chest x-ray was obtained. I viewed the images myself on the PACS system. My interpretation of the images is: Infiltrate, no effusion, normal mediastinum. The radiologist interpretation had no clinically significant variation from this interpretation. ED Course/Re-evaluation Clinical Indication for ER IV: Hydration, IV Access ED Course Patient was admitted to an examination room. H&P was done. The differential diagnoses was considered. Patient taking Zofran and Percocet at home for her kidney stone. She presents to the ER with vomiting and is also noted to be hypoxic. She is treated with IV fluid hydration, Zofran, Toradol, Dilaudid. She feels much better. She remains hypoxic after nebulizer treatment. A chest x-ray shows no infiltrate. Her d-dimer is mildly elevated to 1.17. Her renal function will not tolerate a CT angiogram with contrast. Case was discussed with radiology who agreed with her recent increase in her creatinine from 0.7- 1.3. She should not have IV contrast. A ventilation perfusion scan is advised. Outpatient arrangements were made for a ventilation perfusion scan. Patient was advised to call and follow-up. I did attempt to send her home on supplemental O2, but she refused. Patient advised to follow-up with her primary care for recheck of her oxygenation with primary care in 1-2 days. Decision to Disposition Date: Mar 29, 2018 Decision to Disposition Time: 01:16 Depart Departure Latest Vital Signs Vital Signs Date Time Temp Pulse Resp B/P (MAP) Pulse Ox O2 Delivery O2 Flow Rate FiO2 03/29/18 04:38 73 95 03/29/18 04:33 Nasal Cannula 2 03/29/18 04:30 110/58 (75) 03/29/18 02:03 14 03/29/18 00:06 97.3 Impression: Primary Impression: Vomiting Additional Impressions: Renal colic on left side Hypoxia Elevated d-dimer Condition: Improved Disposition: HOME OR SELF-CARE Referrals: MELIZA WILSON (PCP) NIRAV JANE MD, ERIC J MD [facility] Tamsulosin Hcl (FLOMAX) 0.4 Mg Cap.er.24h 0.4 MG PO QHS for ureteral relaxation, #10 CAP Prov: KARIE MILTON DO 03/29/18 Departure Forms: ER Transition Record, Medications Reconciliation, Patient Portal Information Patient Instructions: Hypoxia (ED), Kidney Stones (ED) Additional Instructions: Take ibuprofen 200 mg 2-3 tablets 3 times a day with food Call the [facility] number [phone] and asked to be connected with the radiology department so you can schedule a ventilation perfusion scan of your lungs to rule out pulmonary embolism as soon as possible. Contact urologist if later today for follow-up Mandatory follow-up with your primary care in 1-2 days for recheck of your oxygenation and/or after the V/Q scan is been performed. Problem Qualifiers Primary Impression: Vomiting Vomiting type: unspecified Vomiting Intractability: intractable Nausea presence: with nausea Qualified Codes: R11.2 - Nausea with vomiting, unspecified KARIE MILTON DO Mar 29, 2018 00:05
[2018-03-29] MEDS ORDERED: NS(*) 0.9% 1000 ML BAG 1,000 ML IV ONE ×2 (00:27→02:40)
[2018-03-29] MEDS ORDERED: HYDR-385 PO ×2 (00:30→00:32)
[2018-03-29] MEDS ORDERED: HYDROMORPHONE HCL 1 MG/ML SYRINGE IVP ONE (00:30)
[2018-03-29] MEDS ORDERED: ONDANSETRON 4 MG/2 ML VIAL IVP ONE (00:30)
[2018-03-29] MEDS ORDERED: KETOROLAC 30 MG/ML VIAL IVP ONE (00:30)
[2018-03-29 00:57] LABS: PLATELET COUNT, AUTOMATED 179 K/uL (150-450)
[2018-03-29] MEDS ORDERED: TAMS0.4C25 PO (01:17)
[2018-03-29] MEDS ORDERED: ALBUTEROL 2.5 MG/3 ML NEB NEB ONE (01:45)
--- NOTE | 2018-03-29 02:54 | RADIOLOGY IMAGING REPORT ---
FACILITY: [facility] [place] PATIENT NAME: Natalie Meza : 1945 MR: [id number] V: [id number] EXAM DATE: ORDERING PHYSICIAN: KARIE MILTON TECHNOLOGIST: Location: [facility] Patient: Natalie Meza : 1945 Visit/Account:[id number] Date of Sevice: 03/29/2018 TWO VIEW CHEST 03/29/2018 2:38 AM. INDICATION: Hypoxia. COMPARISON: Chest radiograph 07/06/2011, CT abdomen and pelvis 03/26/2018. FINDINGS: Lungs are well-expanded. No suspicious consolidation. No pneumothorax or pleural effusion . Pulmonary vasculature is unremarkable. Heart size is normal. Partially calcified splenic artery aneurysms in the upper abdomen as previously seen. Thoracolumbar spinal hardware, unchanged. IMPRESSION: No acute cardiopulmonary abnormality. Report Dictated By: Dax Cuba MD at 03/29/2018 2:48 AM Report E-Signed By: Dax Cuba MD at 03/29/2018 2:50 AM WSN:[id number]
[2018-03-29 04:30] VITALS: BP 110/58
== END 2018-03-29 05:13 | disposition home or self-care (01) ==
LOC: ER 00:46
DX: R11.10 Vomiting, unspecified (principal); N23 Unspecified renal colic; R09.02 Hypoxemia; R79.89 Other specified abnormal findings of blood chemistry
CPT/HCPCS: 36415; 71046; 82150; 83605; 83690; 85025; 85379; 94640; 96361; 96374; 96375; 99284; J1170; J1885; J2405; J7030; J7613; 82040; 82247; 82310; 82374; 82435; 82565; 82947; 84075; 84132; 84155; 84295; 84450; 84460; 84520

== ENCOUNTER → 2018-03-31 | Outpatient (CLI) | payer MEDICARE, OTHER ==
[~2018-03-31] MED LIST changes: +TAMS0.4C25 PO
--- NOTE | 2018-03-31 16:30 | RADIOLOGY IMAGING REPORT ---
FACILITY: [facility] - [place], [place] PATIENT NAME: Natalie Meza : 1945 MR: [id number] V: [id number] EXAM DATE: ORDERING PHYSICIAN: KARIE MILTON TECHNOLOGIST: Location: [facility] [place] Patient: Natalie Meza : 1945 Visit/Account:[id number] Date of Sevice: 03/31/2018 Examination: Nuclear medicine ventilation and perfusion imaging COMPARISON: Chest x-ray same day HISTORY: Hypoxia. Elevated d-dimer. TECHNIQUE: 32.5 mCi aerosolized technetium 99m DTPA was administered by inhalation. Multiplanar static images w ere obtained. 2.0 mCi Tc MAA was injected intravenously. Gamma camera images were obtained of the chest in various orientations. FINDINGS: Lung ventilation radiotracer distribution: Negative. Lung perfusion radiotracer distribution: Negative. Correlation to chest x-ray: Clear lungs. IMPRESSION: Negative VQ scan for pulmonary embolism. Report Dictated By: Emeterio Sandoval MD at 03/31/2018 4:25 PM Report E-Signed By: Emeterio Sandoval MD at 03/31/2018 4:27 PM WSN:[id number]
--- NOTE | 2018-03-31 17:01 | RADIOLOGY IMAGING REPORT ---
FACILITY: [facility] PATIENT NAME: Natalie Meza : 1945 MR: [id number] V: [id number] EXAM DATE: ORDERING PHYSICIAN: KARIE MILTON TECHNOLOGIST: Location: [facility] Patient: Natalie Meza : 1945 Visit/Account:[id number] Date of Sevice: 03/31/2018 Exam type: CHEST PA AND LAT History: Shortness of breath history of low oxygen saturation Comparison: March 29, 2018. Findings: The lungs are free of acute effusions, infiltrates or edema. The cardiac silhouette is normal in siz e. The posterior fixation rods in the thoracic spine. Partially calcified splenic artery aneurysm a gain seen in the left upper quadrant of abdomen. IMPRESSION: 1. No acute cardiac from a process is seen Report Dictated By: Vaishali Delgadillo MD at 03/31/2018 4:56 PM Report E-Signed By: Vaishali Delgadillo MD at 03/31/2018 4:57 PM WSN:[id number]
== END ==
LOC: NUC 07:34
PROVIDERS: ATTEND Emergency Medicine
DX: R09.02 Hypoxemia (principal)
CPT/HCPCS: 71046; 78582; A9540; A9567